=== PATIENT | male | born 1980 | race Caucasian/White ===

== ENCOUNTER 2016-08-07 18:22 | Emergency (ER) | payer BC, OTHER | END 2016-08-07 19:01 | disposition home or self-care (01) | LOC: BURERS 18:22 | DX: T63.461A Toxic effect of venom of wasps, accidental (unintentional), initial encounter (principal); Z23 Encounter for immunization; F17.210 Nicotine dependence, cigarettes, uncomplicated | CPT/HCPCS: 90471 ==

== ENCOUNTER 2018-06-16 17:05 | Emergency (ER) | payer BC, OTHER, SELFPAY ==
[2018-06-16 17:38] LABS: #Basophils 0.1 thou/uL (0.0-0.2); #Lymphocytes 1.3 thou/uL (1.20-3.40); #Monocytes 0.5 thou/uL (0.11-0.59); #Neutrophils 5.4 thou/uL (1.40-6.50); %Basophils 0.8 % (0.0-1.0); %Eosinophils 0.5 % (0.0-10.0); %Lymphocytes 18.1 % (21.0-51.0); %Neutrophils 73.6 % (42.0-75.0); Hemoglobin 17.7 g/dL (14.0-18.0); Mean Corpuscular HGB CONC 32.4 g/dL (32.0-36.0); Mean Corpuscular Hemoglobin 30.3 pg (27.0-31.0); Mean Corpuscular Volume 93.5 fL (78.0-98.0); Mean Platelet Volume 7.5 fL (7.4-10.4); Platelet Count 215 thou/uL (130-400); RBC Distribution Width 11.4 % (11.5-14.5); Red Blood Cell (RBC) Count 5.85 mill/uL (4.70-6.10); White Blood Cell (WBC) Count 7.3 thou/uL (4.8-10.8)
[2018-06-16 17:54] LABS: ALT (SGPT) 67 U/L (8-55); AST (SGOT) 90 U/L (5-34); Acetaminophen Less than 6.0 mcg/mL (10.0-30.0); Albumin 4.7 g/dL (3.5-5.0); Alcohol 119 mg/dL (Less than 10); Alkaline Phosphatase 57 U/L (40-150); Anion Gap 18 mmol/L (10-20); BUN (Urea Nitrogen) 9 mg/dL (8.9-20.6); Bilirubin, Total 0.4 mg/dL (0.2-1.2); Calc. Creatinine Clearance 0 mL/min (70-130); Calcium 9.5 mg/dL (7.8-10.44); Carbon Dioxide 21 mmol/L (22-29); Chloride 103 mmol/L (98-107); Estimated GFR-MDRD Greater than 90; Globulin 3.3 g/dL (2.4-3.5); Glucose 120 mg/dL (70-105); Potassium 3.4 mmol/L (3.5-5.1); Salicylate Less than 8.0 mg/dL (15.0-30.0); Sodium 139 mmol/L (136-145)
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
[2018-06-16] MEDS ORDERED: Ketorolac Tromethamine 30 MG/ML VIAL ONE (18:02)
[2018-06-16] MEDS ORDERED: Pantoprazole 40 MG VIAL ONE (18:02)
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
--- NOTE | 2018-06-16 19:38 | RAD ---
LEFT FEMUR 06/16/18 AP and lateral views of the femur showed no fracture. A small amount of periosteal prominence along t he inner aspect of the mid shaft is probably not currently significant. There is no sign of joint eff usion at the knee. The knee joint space appears normal. No abnormalities of the left hip were detecte d. IMPRESSION: No acute bony finding. POS: HOME
--- NOTE | 2018-06-16 19:39 | RAD ---
LEFT FOOT THREE VIEWS: 06/16/18 No fracture was seen. All bones appeared intact. The joints appear normal as well. IMPRESSION: No acute findings. POS: HOME
--- NOTE | 2018-06-16 19:39 | RAD ---
LEFT ANKLE THREE VIEWS: 06/16/18 No fracture, dislocation, or joint space abnormality was seen. All bones appeared intact. IMPRESSION: No acute findings. POS: HOME
== END 2018-06-16 19:40 | disposition home or self-care (01) ==
LOC: BURERS 17:05
DX: S70.02XA Contusion of left hip, initial encounter (principal); S70.12XA Contusion of left thigh, initial encounter; S90.32XA Contusion of left foot, initial encounter; F17.210 Nicotine dependence, cigarettes, uncomplicated; V63.5XXA Driver of heavy transport vehicle injured in collision with car, pick-up truck or van in traffic accident, initial encounter
CPT/HCPCS: 70450; 72125; 72131; 72192; 80053; 80307; 85025; 96374; 96375; C9113; J1885